=== PATIENT | male | born 1990 | race Caucasian/White ===

== ENCOUNTER 2016-09-24 12:05 | Emergency (ER) | payer OTHER ==
[~2016-09-24] VITALS: Ht 182.9 cm; Wt 81.7 kg
--- NOTE | ~2016-09-24 | EKG ---
[place] [address] [facility] [employer] [place] [address] ELECTROCARDIOGRAM REPORT Name: KODY CLARK Alexx Room #: DEP LYNETTE Mccullough#: [id number] Admission: 09/24/16 Attend Phys: Discharge: 09/24/16 Date of : 88 Report #: [id number] THIS REPORT FOR: //name// [facility] ED Test Date: 2016-09-24 Test Time: 12:04:51 Pat Name: KODY CLARK Department: Room: Gender: Principal Engineer: Alix PAREDES : 1990 Requested By: Lane Gustafson Order Number: [id number] MD: Peyman Metz Measurements Intervals [place] Rate: 55 P: -22 OR: 110 QRS: 61 QRSD: 114 T: 35 QT: 418 QTc: 400 Interpretive Statements Sinus rhythm Borderline short OR interval Incomplete right bundle branch block No previous ECG available for comparison Electronically Signed On 09-24-2016 15:00:31 GRAVEL INSPECTOR by Peyman Metz [email or web address] <ELECTRONICALLY SIGNED> By: Peyman Metz MD 09/24/16 1500 1204 1204 Peyman Metz MD /CHINO
[2016-09-24] MEDS ORDERED: NOHOMEMEDICATIONS (12:11)
[2016-09-24 12:36] LABS: ABSOLUTE NEUTROPHILS 4.7 thou/uL (1.4-8.2); BASOPHILS 0.6 % (0.0-2.0); EOSINOPHILS 1.9 % (0.0-3.0); HEMATOCRIT 43.3 % (42.0-52.0); HEMOGLOBIN 15.3 gm/dL (14.0-18.0); LYMPHOCYTES 26.4 % (24.0-44.0); MANUAL DIFF NO; MCH 31.1 pg (26.0-34.0); MCHC 35.3 % (28.0-37.0); MONOCYTES 7.4 % (1.0-8.0); PLATELET COUNT 237 thou/uL (150-400); POLYS 63.7 % (36.0-66.0); RBC 4.92 mil/uL (4.50-6.00); RDW 12.7 % (10.5-14.5); WBC 7.3 thou/uL (4.0-11.0)
[2016-09-24 12:39] LABS: CALCIUM 9.4 mg/dL (8.5-10.1); CREATININE 1.6 mg/dL (0.6-1.3); POTASSIUM 4.3 mmol/L (3.5-5.1)
[2016-09-24 13:40] LABS: URINE BILIRUBIN NEGATIVE (Negative); URINE BLOOD NEGATIVE (Negative); URINE COLOR YELLOW; URINE GLUCOSE-RANDOM* NEGATIVE (Negative); URINE KETONES NEGATIVE (Negative); URINE NITRITE NEGATIVE (Negative); URINE PROTEIN (DIPSTICK) TRACE (Negative); URINE SPECIFIC GRAVITY <= 1.005 (1.003-1.035); URINE UROBILINOGEN 0.2 E.U./dl (0.2-1.0)
[2016-09-24 14:38] VITALS: BP 127/80
== END 2016-09-24 14:39 | disposition home or self-care (01) ==
LOC: ER 12:05
PROVIDERS: Emergency Medicine
DX: R55 Syncope and collapse (principal); Z88.0 Allergy status to penicillin